=== PATIENT | male | born 1985 | race Caucasian/White ===

== ENCOUNTER → 2018-12-05 11:36 | Outpatient (CLI) | payer BC, SELFPAY ==
[2018-12-05 12:51] LABS: Absolute Lymphocyte Count 2.28 X10^3/ul (0.83-4.51); Absolute Neutrophil Count 5.7 X10^3/uL (2.0-7.7); Basophil# 0.02 X10^3/uL; Basophil% 0.2 % (0-1); Eosinophil# 0.06 X10^3/uL; Eosinophils% 0.7 % (0-5); Hematocrit 43.8 % (40-54); Hemoglobin 14.6 g/dl (13.0-16.5); Lymphocyte # 2.28 X10^3/ul (4.0); Lymphocyte % 26.9 % (19-41); Mean Corp Hgb Conc 33.3 g/gl (32-36); Mean Corpuscular Hgb 30.7 pg (27.0-32.0); Mean Corpuscular Volume 92.2 fL (80-94); Mean Platelet Vol. 10.8 fl (6.2-12.0); Monocyte# 0.45 X10^3/uL; Monocyte% 5.3 % (0-10); Neutrophil # 5.66 X10^3/uL (2.7-7.7); Neutrophil % 66.8 % (47-70); POSITIVE COUNT NO; POSITIVE DIFFERENTIAL NO; POSITIVE MORPHOLOGY NO; Platelet Count 223 K/mm3 (150-450); RBC Distribution Width CV 12.8 % (11.6-14.6); RBC Distribution Width SD 43.1 fl (35.1-43.9); Red Blood Count 4.75 M/mm3 (4.6-6.2); White Blood Count 8.5 K/mm3 (4.4-11.0)
[2018-12-05 13:09] LABS: CRP < 2.90 mg/L (0.0-3.0); Rheumatoid Factor < 10.0 IU/mL (<15); Uric Acid 5.2 mg/dL (3.5-7.2)
[2018-12-05 20:30] LABS: Erythrocyte Sedimentation Rate < 1 mm/hr (0-15)
[2018-12-06 16:18] LABS: ANTINUCLEAR ANTIBODIES DIRECT Negative (Negative)
== END ==
PROVIDERS: Referring Provider Orthopaedic Surgery; Visit Provider Orthopaedic Surgery
DX: M54.2 Cervicalgia (principal)
CPT/HCPCS: 36415; 84550; 85025; 85652; 86038; 86140; 86431

== ENCOUNTER 2019-08-14 09:28 | Emergency (ER) | payer BC, SELFPAY ==
[2019-08-14 09:29] VITALS: BP 132/78; PULSE 89; RESP 20; TEMP 36.6; O2SAT 97; BMI 27.7
--- NOTE | 2019-08-14 09:43 | ED.DCSUM_ITS ---
- ER Visit Summary Date of Service: 08/14/19 Chief Complaint: Nausea, vomiting and diarrhea History of Present Illness: The patient is a 34 M no significant past medical or surgical history. Patient states around 1:00 this morning he started having nausea, vomiting and diarrhea. The only abdominal pain he has had is cramping. He denies any melena hematemesis. No fever. No dysuria. He said he was fine until about 1:00 this morning. Says his diarrhea is just watery. He has had multiple episodes of multiple episodes of vomiting. Physical Examination: Younger male no acute distress vital signs are stable afebrile. Initial blood pressure 132/78. Afebrile heart rate 89. He does not look septic or toxic looks mildly dehydrated. HEENT exam mild dry mucous membranes. Otherwise unremarkable. Neck nontender. Lungs clear to auscultation bilaterally. Heart regular rhythm rate about 90 no murmur. Abdomen soft, nontender, nondistended normal bowel sounds no peritoneal signs. No signs of obstruction. No localizing tenderness. Both the right upper and right lower quadrants are unremarkable. No hernias or masses. He is moving all 4 extremities. No edema. No rashes. Neurologically is awake and alert with no focal motor deficits. Test Results: None Emergency Department Course and Treatment: Patient's history and exam are consistent with a viral gastroenteritis with mild dehydration. He will be treated with a liter normal saline. IV Zofran. Reassessed and well at 1150 fluids. His abdomen is benign. We discussed home treatment. Treatment Plan: Graves diet increase as tolerated. Zofran as needed for nausea. Follow-up if not improving return if worse. Disposition: Discharge Impression: Viral gastroenteritis Mild dehydration This note was generated with [employer] dictation software. It may contain incorrect words, spelling, and punctuation that were not noted in review of the chart prior to signing ED Disposition - Plan for ED Patient: Disposition: Home or Assisted Living Instructions: GASTROENTERITIS, Viral (8y-Adult) Prescriptions: Ondansetron [Zofran Odt] 4 mg PO Q8H PRN PRN #7 tab PRN Reason: Nausea Prescription Printed Referrals: Gaurav Santillan MD [STAFF PHYSICIAN] - 3-5 Days if not improving Additional Instructions: Plenty of fluids and rest. Graves diet and increase as tolerated. Zofran as needed for nausea. Follow-up with your doctor if not improving return if worse.
--- NOTE | 2019-08-14 09:47 | DCINST.ED_ITS ---
ED Disposition - Plan for ED Patient: Disposition: Home or Assisted Living Instructions: GASTROENTERITIS, Viral (8y-Adult) Prescriptions: Ondansetron [Zofran Odt] 4 mg PO Q8H PRN PRN #7 tab PRN Reason: Nausea Prescription Printed Referrals: Gaurav Santillan MD [STAFF PHYSICIAN] - 3-5 Days if not improving Additional Instructions: Plenty of fluids and rest. [place] diet and increase as tolerated. Zofran as needed for nausea. Follow-up with your doctor if not improving return if worse.
[2019-08-14] MEDS: 0.9% Normal Saline 1,000 ML 1000 ML IV (10:03)
[2019-08-14] MEDS: Ondansetron 4 MG/2 ML Vial IV (10:03)
--- NOTE | 2019-08-14 10:04 | ED.RN ---
[facility] NOT WORKING
[2019-08-14 11:46] VITALS: BP 115/64; PULSE 72; RESP 14; O2SAT 99
== END 2019-08-14 11:47 | disposition home or self-care (01) ==
LOC: ED 09:57
PROVIDERS: Emergency Provider Emergency Medicine
DX: A08.4 Viral intestinal infection, unspecified (principal); E86.0 Dehydration; Z72.0 Tobacco use
CPT/HCPCS: 96361; 96374; 99283; J7030; A4216; J2405